=== PATIENT | male | born 1995 | race Two or more races ===

== ENCOUNTER 2022-06-07 20:17 | Emergency (ER) | payer OTHER ==
[~2022-06-07] VITALS: Ht 167.6 cm; Wt 65.9 kg
[~2022-06-07 20:17] MED LIST: ALBUPOW26
[2022-06-07] MEDS ORDERED: methylPREDNISolone SOD SUCC 125 MG/2 ML VL IM ONE (21:00)
[2022-06-07] MEDS ORDERED: ALBUTEROL SULF 2.5 MG/0.5ML(0.5%) NEB SOLN NEB ONE ×2 (21:00→23:15)
[2022-06-07] MEDS ORDERED: IPRATROPIUM BROM 0.5 MG/2.5ML INH SOL NEB ONE ×2 (21:00→23:15)
[2022-06-07] MEDS ORDERED: ALBUTEROL MEDNEB 2.5 mg/3ml NEB ONE ×2 (21:11→23:18)
[2022-06-07] MEDS ORDERED: methylPREDNISolone SOD SUCC 125 MG/2 ML VL IV ONE (21:15)
[2022-06-07 21:40] LABS: Basophils # (auto) 0.1 10 ^3/uL (0-0.2); Eosinophils # (auto) 0.5 10 ^3/uL (0-0.8); Mean Corpuscular Volume 84.7 fL (80.0-100.0); Monocytes # (auto) 0.8 10 ^3/uL (0-1.3)
[2022-06-07 21:42] LABS: Basophils % (auto) 0.3 % (0.0-2.0); Eosinophils % (auto) 3.1 % (0.0-7.0); Hematocrit 50.5 % (41.0-53.0); Hemoglobin 17.9 g/dL (13.5-17.5); Lymphocytes # (auto) 1.4 10 ^3/uL (0.4-5.4); Lymphocytes % (auto) 8.8 % (10.0-50.0); Mean Corpuscular Hgb Conc. 35.4 g/dL (32.0-36.0); Monocytes % (auto) 5.4 % (0.0-12.0); Neutrophils # (auto) 12.9 10 ^3/uL (1.6-8.6); Neutrophils % (auto) 82.4 % (37.0-80.0); Nucleated Red Blood Cells % 1.7 %; Red Blood Cells 5.96 10^6/uL (4.5-5.90); Red Cell Distribution Width 12.8 % (11.8-14.3); White Blood Cell 15.6 10^3/uL (4.4-10.8)
[2022-06-07 21:59] LABS: Albumin 4.1 g/dL (3.4-5.0); Calcium 9.3 mg/dL (8.5-10.1)
[2022-06-07 22:02] LABS: Total Protein 8.2 g/dL (6.4-8.2)
[2022-06-08] MEDS ORDERED: PRED20TA2 PO (03:07)
[2022-06-08] MEDS ORDERED: AZIT250T9 PO (03:08)
[2022-06-08 03:23] VITALS: BP 107/71
== END 2022-06-08 03:27 | disposition home or self-care (01) ==
LOC: ER 20:17
DX: J45.909 Unspecified asthma, uncomplicated (principal)
CPT/HCPCS: 36415; 71045; 80053; 85025; 94640; 99284; J2930; J7644

== ENCOUNTER 2024-07-04 00:17 | Emergency (ER) | payer OTHER ==
[~2024-07-04] VITALS: Ht 167.6 cm; Wt 57.1 kg
[~2024-07-04 00:17] MED LIST changes: +AZIT-43 PO; +PRED20TA2 PO
[2024-07-04 00:20] VITALS: TEMP 98
[2024-07-04 00:25] VITALS: BP 135/90; PULSE 110
[2024-07-04] MEDS: methylPREDNISolone SOD SUCC 125 MG/2 ML VL IM ONE (00:36)
[2024-07-04] MEDS ORDERED: PRED20TA2 PO (00:42)
[2024-07-04] MEDS ORDERED: ALBUAER3 IN (00:42)
--- NOTE | 2024-07-04 00:43 | ED.PDOC ---
SOB-HPI HPI Comments 29 YEAR OLD MALE PRESENTS TO ER WITH COMPLAINTS OF ASTHMA EXACERBATION X1 DAY. PATIENT REPORTS THAT HE HAS BEEN EXPERIENCING SHORTNESS OF BREATH, WHEEZING AND DRY COUGH X1 DAY. REPORTS HE HAS HAD SIMILAR SYMPTOMS IN THE PAST RELATED TO ASTHMA EXACERBATION. DENIES USE OF MEDICATIONS FOR CURRENT SYMPTOMS AND PRESENT S TO ER AMBULATORY ON ARRIVAL, WITH STEADY GAIT, IN NO DISTRESS WITH MILD WHEEZING NOTED TO BILATERAL UPPER/LOWER LUNG COLBY. DENIES CHEST PAIN, FEVER, BODY ACHES, CHILLS, NAUSEA/VOMITING, RECENT ILLNESS OR ANY FURTHER SYMPTOMS/COMPLAINTS Chief Complaint: Asthma Time Seen by MD: 00:20 Primary Care Provider: UNKNOWN Reviewed notes: Nurses Notes, Medications, Allergies Information Source: Patient Mode of Arrival: Ambulatory Past Medical History PAST MEDICAL HISTORY: Asthma Surgical History: Denies all surgeries Family History Family History: Unknown Social History Smoker: Non-Smoker Alcohol: Denies ETOH Use Drugs: Denies Drug Use Lives In: Home Constitutional: denies: chills, diaphoresis, fatigue, fever, malaise, sweats, weakness, others EENTM: denies: blurred vision, double vision, ear bleeding, ear discharge, ear drainage, ear pain, ear ringing, eye pain, eye redness, hearing loss, mouth pain, mouth swelling, nasal discharge, nose bleeding, nose congestion, nose pain, photophobia, tearing, throat pain, throat swelling, voice changes, others Respiratory: reports: others ( STATED IN HPI) Cardiovascular: denies: chest pain, dizzy spells, diaphoresis, Dyspnea on exertion, edema, irregular heart beat, left arm pain, lightheadedness, palpitations, PND, syncope, others Gastrointestinal: denies: abdomen distended, abdominal pain, blood streaked bowels, constipated, diarrhea, dysphagia, difficulty swallowing, hematemesis, melena, nausea, poor appetite, poor fluid intake, rectal bleeding, rectal pain, vomiting, others Genitourinary: denies: burning, dysuria, flank pain, frequency, hematuria, incontinence, penile discharge, penile sore, pain, testicle pain, testicle swelling, urgency, others Neurological: denies: dizziness, fainting, headache, left sided numbness, left sided weakness, numbness, paresthesia, pre-existing deficit, right sided numbness, right sided weakness, seizure, speech problems, tingling, tremors, weakness, others Musculoskeletal: denies: back pain, gout, joint pain, joint swelling, muscle pain, muscle stiffness, neck pain, others Integumetry: denies: bruises, change in color, change in hair/nails, dryness, laceration, lesions, lumps, rash, wounds, others Allergic/Immunocompromised: denies: Difficulty Healing, Frequent Infections, Hives, Itching, others Hematologic/Lymphatic: denies: anemia, blood clots, easy bleeding, easy bruising, swollen glands, others Endocrine: denies: excessive hunger, excessive sweating, excessive thirst, excessive urination, flushing, intolerance to cold, intolerance to heat, unexplained weight gain, unexplained weight loss, others Psychiatric: denies: anxiety, bipolar disorder, depression, hopeless, panic disorder, schizophrenia, sleepless, suicidal, others Physical Exam General Appearance: No Apparent Distress HEENT: Normal ENT Inspection, PERRL/EOMI, Pharynx Normal, TMs Normal Neck: Full Range of Motion, Non-Tender, Normal Respiratory: Chest Non-Tender, Lungs Clear, No Accessory Muscle Use, No Respiratory Distress, Wheezing (MILD WHEEZING NOTED TO BILATERAL UPPER/LOWER LUNG COLBY) Cardiovascular: No Murmur, No Gallop, Regular Rate/Rhythm Breast Exam: Deferred Gastrointestinal: NOT DONE Genitalia: Deferred Pelvic: Deferred Rectal: Deferred Extremities: Normal capillary refill, Normal range of motion Neurologic: Alert, No Motor Deficits, Normal Affect, Normal Mood, No Sensory Deficits Cerebellar Function: Normal Reflexes: Normal Skin: Dry, Normal Color, Warm Peripheral Pulses: 2+ Radial (R), 2+ Radial (L), 2+ Brachial (R), 2+ Brachial (L) Lymphatic: No Adenopathy Was a procedure done? Was a procedure done?: No Sedation Sedation?: No Differential Dx Differential Diagnosis: Pneumonia, Respiratory Distress, URI X-Ray, Labs, Meds, VS Vital Signs Date Time Temp Pulse Resp B/P (MAP) Pulse Ox O2 Delivery O2 Flow Rate FiO2 07/04/24 01:05 20 96 Room Air* 0 21 07/04/24 00:47 20 95 Room Air* 0 21 07/04/24 00:25 98.0 110 20 135/90 (105) 96 07/04/24 00:25 96 Room Air* 0 21 07/04/24 00:20 Room Air 07/04/24 00:20 98.0 110 20 135/90 (105) 96 98.0 Current Medications Medications (Trade) Dose Ordered Sig/Timmy Route Start Time Stop Time Status Last Admin Methylprednisolone Sodium Succinate (Solu Medrol) 125 mg ONCE ONCE IM 07/04/24 00:30 07/04/24 00:31 DC 07/04/24 00:36 Albuterol (Ventolin Medneb) 5 mg ONCE ONCE NEB 07/04/24 00:30 07/04/24 00:31 DC 07/04/24 00:46 Ipratropium Upham (Atrovent Medneb) 0.5 mg ONCE ONCE NEB 07/04/24 00:30 07/04/24 00:31 DC 07/04/24 00:46 Albuterol (Ventolin Medneb) 5 mg ONCE ONCE NEB 07/04/24 01:00 07/04/24 01:01 DC 07/04/24 01:05 Ipratropium Upham (Atrovent Medneb) 0.5 mg ONCE ONCE NEB 07/04/24 01:00 07/04/24 01:01 DC 07/04/24 01:05 2 DUO NEBULIZER TREATMENTS ORDERED SOLU-MEDROL 125 MG IM ORDERED PATIENT REPORTED IMPROVEMENT IN SYMPTOMS, DENIED ANY SHORTNESS OF BREATH/WHEEZING AND IN NO DISTRESS PRIOR TO DISCHARGE ADVISED TO DRINK PLENTY OF FLUIDS ADVISED TO FOLLOW UP WITH PCP IN 1-2 DAYS PATIENT VERBALIZED UNDERSTANDING AND AGREEABLE WITH CURRENT PLAN OF CARE ADVISED TO RETURN TO ER IMMEDIATELY IF SYMPTOMS WORSEN Time of 1ST Reevaluation: 00:24 Reevaluation 1ST: N/A Time of 2ND Reevaluation: 00:10 Reevaluation 2ND: Improved Patient Education/Counseling: Diagnosis, Treatment, Prognosis, Need For Follow Up Family Education/Counseling: No Family Present Departure 1 Departure Time of Disposition: 01:12 Impression: Primary Impression: Acute asthma exacerbation Qualified Codes: J45.21 - Mild intermittent asthma with (acute) exacerbation Disposition: HOME / SELF CARE / HOMELESS Condition: Stable e-Prescriptions Albuterol Sulfate (VENTOLIN MDI) 90 Mcg Ih 2 PUFF IN Q4HPRN, #1 INH 0 Refills Prov: RONY HANSEN 07/04/24 Prednisone (Prednisone) 20 Mg Tab 20 MG PO BID for 5 Days, #10 TAB 0 Refills Prov: RONY HANSEN 07/04/24 Discharged With: Self Critical Care Note Critical Care Time?: No Stability Stability form required: No Heart Score Heart Score: Heart Score Response (Comments) Value History N/A 0 EKG N/A 0 Age N/A 0 Risk Factors N/A 0 Troponin N/A 0 Total 0 RONY HANSEN Jul 04, 2024 00:43
[2024-07-04] MEDS: ALBUTEROL SULF 2.5 MG/0.5ML(0.5%) NEB SOLN NEB ONE ×2 (00:46→01:05)
[2024-07-04] MEDS: IPRATROPIUM BROM 0.5 MG/2.5ML INH SOL NEB ONE ×2 (00:46→01:05)
[2024-07-04 01:05] VITALS: RESP 20; O2SAT 96
== END 2024-07-04 01:22 | disposition home or self-care (01) ==
LOC: ER 00:17
DX: J45.901 Unspecified asthma with (acute) exacerbation (principal)
CPT/HCPCS: 94640; 96372; 99284; J2919